=== PATIENT | female | born 2000 | race African-American/Black ===

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

== ENCOUNTER 2019-01-05 22:05 | Observation (INO) | payer MEDICAID ==
[~2019-01-05] VITALS: Ht 152.4 cm; Wt 94.8 kg
[2019-01-05] MEDS ORDERED: LACTATED RINGERS 1,000 ML IV SCH (23:21)
[2019-01-06] MEDS ORDERED: INSULIN REGULAR (HUMULIN R) 300UNITS/3ML SUBCUT NR
[2019-01-06 01:12] LABS: CLARITY URINE CLOUDY (CLEAR); COLOR URINE YELLOW (YELLOW); KETONES URINE 2+ (NEGATIVE); LEUKOCYTE ESTERASE URINE 2+ (NEGATIVE); NITRITE URINE NEGATIVE (NEGATIVE); OCCULT BLOOD URINE NEGATIVE (NEGATIVE); PROTEIN URINE NEGATIVE (NEGATIVE); SPECIFIC GRAVITY URINE 1.034 (1.005-1.030)
[2019-01-06] MEDS ORDERED: METRONIDAZOLE 500MG TABLET PO NR (02:15)
== END 2019-01-06 07:15 | disposition home or self-care (01) ==
LOC: 8 EST LDRP 22:05
PROVIDERS: ADMIT Obstetrics & Gynecology; ATTEND Obstetrics & Gynecology
DX: O99.89 Other specified diseases and conditions complicating pregnancy, childbirth and the puerperium (principal); H92.01 Otalgia, right ear; O26.893 Other specified pregnancy related conditions, third trimester; R10.9 Unspecified abdominal pain; Z3A.32 32 weeks gestation of pregnancy
CPT/HCPCS: 81003; 82962; 96372; 99281; G0378; J1815; 96360; 96361; J7120